=== PATIENT | female | born 1960 | race Caucasian/White ===

== ENCOUNTER 2018-03-01 18:17 | Emergency (ER) | END 2018-03-01 19:55 | disposition left against medical advice (07) ==

== ENCOUNTER 2018-11-06 11:15 | Emergency (ER) | payer OTHER ==
[~2018-11-06] VITALS: Wt 90.0 kg
[~2018-11-06 11:15] MED LIST: LD2VS100B MM; TRAM50TA2 PO
[2018-11-06 11:17] VITALS: BP 178/77; PULSE 63; RESP 18
[2018-11-06] MEDS ORDERED: ACETAMINOPHEN 500 MG TAB PO STA (12:07)
[2018-11-06] MEDS ORDERED: CYCLOBENZAPRINE 10 MG TAB PO ONE (12:30)
[2018-11-06] MEDS ORDERED: traMADol 50 MG TAB PO ONE (12:30)
[2018-11-06] MEDS ORDERED: ACET500C5 PO (13:55)
[2018-11-06] MEDS ORDERED: CYCL10TA7 PO (13:55)
[2018-11-06] MEDS ORDERED: TRAM50TA2 PO (13:55)
[2018-11-06] MEDS ORDERED: HYDROCODONE/APAP (10/325) TAB PO ONE (14:00)
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
== END 2018-11-06 14:07 | disposition home or self-care (01) ==
LOC: FTE 11:15
DX: S40.022A Contusion of left upper arm, initial encounter (principal); J45.909 Unspecified asthma, uncomplicated; I10 Essential (primary) hypertension; S29.001A Unspecified injury of muscle and tendon of front wall of thorax, initial encounter; V43.52XA Car driver injured in collision with other type car in traffic accident, initial encounter
CPT/HCPCS: 71046; 93005; Z7502; Z7610